=== PATIENT | female | born 1980 | race Caucasian/White ===

== ENCOUNTER → 2017-02-25 | Outpatient (CLI) | payer MEDICAID | END | disposition home or self-care (01) | LOC: WOUND 09:30 | PROVIDERS: ATTEND Internal Medicine | DX: T87.89 Other complications of amputation stump (principal); L89.892 Pressure ulcer of other site, stage 2; F32.9 Major depressive disorder, single episode, unspecified; G43.909 Migraine, unspecified, not intractable, without status migrainosus; K21.9 Gastro-esophageal reflux disease without esophagitis; E66.01 Morbid (severe) obesity due to excess calories; F41.9 Anxiety disorder, unspecified; Z72.89 Other problems related to lifestyle; Y83.5 Amputation of limb(s) as the cause of abnormal reaction of the patient, or of later complication, without mention of misadventure at the time of the procedure | CPT/HCPCS: 99213 ==

== ENCOUNTER 2018-10-25 18:51 | Emergency (ER) | payer MEDICARE, MEDICAID ==
[~2018-10-25] VITALS: Ht 160 cm; Wt 112.4 kg
[2018-10-25 18:57] VITALS: BP 121/85
[2018-10-25 19:54] LABS: BASOPHILS # (AUTO) 0.03 x10^3/uL (0-0.1); BASOPHILS % (AUTO) 0 % (0-1); EOSINOPHILS % (AUTO) 1 % (1-7); LYMPHOCYTES # (AUTO) 2.49 x10^3/uL (1-3.4); LYMPHOCYTES % (AUTO) 25 % (22-44); MD NO; MEAN CORPUSCULAR HEMOGLOBIN 30.8 pg (27.0-34.8); MEAN CORPUSCULAR HGB CONC 34.5 g/dL (32.4-35.8); MEAN CORPUSCULAR VOLUME 89.2 fL (80-100); MEAN PLATELET VOLUME 7.7 fL (7.4-10.4); MONOCYTES # (AUTO) 0.69 x10^3/uL (0.2-0.8); MONOCYTES % (AUTO) 7 % (2-9); NEUTROPHILS # (AUTO) 6.53 x10^3/uL (1.8-6.8); NEUTROPHILS % (AUTO) 66 % (42-75); PLATELET COUNT 277 x10^3/uL (130-400); RED BLOOD COUNT 4.83 x10^6/uL (3.82-5.3); RED CELL DISTRIBUTION WIDTH 12.5 % (9.6-15.2)
[2018-10-25] MEDS ORDERED: ONDANSETRON ODT 4 MG PO ONE (20:00)
[2018-10-25 20:03] LABS: ALANINE AMINOTRANSFERASE 59 U/L (12-78); ALBUMIN 3.5 g/dL (3.4-5.0); ANION GAP 9 mmol/L (5-15); CALCIUM 9.4 mg/dL (8.5-10.1); CHLORIDE 104 mmol/L (98-107); CREATININE 0.88 mg/dL (0.55-1.02)
[2018-10-25 20:08] LABS: ALKALINE PHOSPHATASE 125 U/L (45-117); BILIRUBIN,TOTAL 0.6 mg/dL (0.2-1.0); TOTAL PROTEIN 7.8 g/dL (6.4-8.2)
[2018-10-25] MEDS ORDERED: ONDANSETRON ODT 4 MG ONE (20:15)
== END 2018-10-25 20:49 | disposition home or self-care (01) ==
LOC: ED 20:10
DX: R11.2 Nausea with vomiting, unspecified (principal); R19.7 Diarrhea, unspecified; K64.4 Residual hemorrhoidal skin tags; I10 Essential (primary) hypertension
CPT/HCPCS: 36415; 80053; 84703; 85025; 99283; Q0162

== ENCOUNTER 2018-12-02 19:18 | Emergency (ER) | payer MEDICARE, MEDICAID ==
[~2018-12-02] VITALS: Ht 160 cm; Wt 115.2 kg
--- NOTE | 2018-12-02 19:56 | NUR ---
PT PRESENTED WITH C/O SIGNIFICANT PAIN TO THE RIGHT SIDE OF THE BACK/BUTTOCK AREA. PT HAD NEUROSTIMULATOR PLACED LAST MONTH, NOW HERE WITH WORSENING PAIN. MONITORS APPLIED, SIDERAILS UP X2, FAMILY AT BEDSIDE, CALL LIGHT WITHIN REACH. EXECUTIVE MARKETING ASSISTANT AT BEDSIDE FOR LAB DRAW.
[2018-12-02] MEDS ORDERED: BUPR1PAT20 TD (20:06)
[2018-12-02] MEDS ORDERED: ATOR10TA9 PO (20:06)
[2018-12-02] MEDS ORDERED: PREG100C PO (20:06)
[2018-12-02] MEDS ORDERED: VENL75TA PO (20:06)
[2018-12-02] MEDS ORDERED: MONT10TA6 PO (20:06)
[2018-12-02] MEDS ORDERED: L.AC1CAP6 PO (20:06)
[2018-12-02] MEDS ORDERED: PANT40TA5 PO (20:06)
[2018-12-02] MEDS ORDERED: BUSP10TA PO (20:06)
[2018-12-02] MEDS ORDERED: MULT-508 PO (20:06)
[2018-12-02] MEDS ORDERED: ASPI-515 PO (20:06)
[2018-12-02 20:13] LABS: BASOPHILS # (AUTO) 0.03 x10^3/uL (0-0.1); BASOPHILS % (AUTO) 0 % (0-1); EOSINOPHILS # (AUTO) 0.06 x10^3/uL (0-0.4); EOSINOPHILS % (AUTO) 1 % (1-7); LYMPHOCYTES # (AUTO) 2.78 x10^3/uL (1-3.4); LYMPHOCYTES % (AUTO) 30 % (22-44); MD NO; MEAN CORPUSCULAR HEMOGLOBIN 30.1 pg (27.0-34.8); MEAN CORPUSCULAR VOLUME 88.4 fL (80-100); MEAN PLATELET VOLUME 7.8 fL (7.4-10.4); MONOCYTES % (AUTO) 6 % (2-9); NEUTROPHILS # (AUTO) 5.82 x10^3/uL (1.8-6.8); NEUTROPHILS % (AUTO) 63 % (42-75); PLATELET COUNT 283 x10^3/uL (130-400); RED BLOOD COUNT 4.38 x10^6/uL (3.82-5.3); RED CELL DISTRIBUTION WIDTH 12.3 % (9.6-15.2)
--- NOTE | 2018-12-02 20:18 | NUR ---
SENIOR CLINICAL PROJECT MANAGER AT PT'S BEDSIDE RAMON SHAH
[2018-12-02 20:21] LABS: ALANINE AMINOTRANSFERASE 43 U/L (12-78); ALBUMIN 3.2 g/dL (3.4-5.0); ANION GAP 5 mmol/L (5-15); CALCIUM 8.5 mg/dL (8.5-10.1); CHLORIDE 109 mmol/L (98-107); CREATININE 0.91 mg/dL (0.55-1.02)
[2018-12-02 20:23] LABS: ALKALINE PHOSPHATASE 122 U/L (45-117); BILIRUBIN,TOTAL 0.2 mg/dL (0.2-1.0)
[2018-12-02] MEDS ORDERED: OXYcodone/APAP 5/325MG TABLET PO ONE (20:30)
[2018-12-02] MEDS ORDERED: OXYcodone/APAP 5/325MG TABLET ONE (20:39)
--- NOTE | 2018-12-02 20:44 | NUR ---
PT MEDICATED FOR PAIN, SIDERAILS UP X2, CALL LIGHT WITHIN REACH.
[2018-12-02 21:16] VITALS: BP 144/95
--- NOTE | 2018-12-02 21:17 | NUR ---
PT RESTING ON GURNEY, STATED "PAIN HAS GOTTEN BETTER", DENIES NEEDS AT THIS TIME, CALL LIGHT WITHIN REACH
== END 2018-12-02 22:22 | disposition home or self-care (01) ==
LOC: ED 21:09
DX: L76.82 Other postprocedural complications of skin and subcutaneous tissue (principal); I10 Essential (primary) hypertension
CPT/HCPCS: 36415; 80053; 85025; 99283

== ENCOUNTER 2018-12-04 21:33 | Emergency (ER) | payer MEDICARE, MEDICAID ==
[~2018-12-04] VITALS: Ht 160 cm; Wt 105.0 kg
[~2018-12-04 21:33] MED LIST: ASPI-515 PO; ATOR10TA9 PO; BUPR1PAT20 TD; BUSP10TA PO; L.AC1CAP6 PO; MONT10TA6 PO; MULT-508 PO; PANT40TA5 PO; PREG100C PO; VENL75TA PO
--- NOTE | 2018-12-04 21:35 | NUR ---
PT BIBA FROM HOME WITH C/O BACK PAIN, COUGH, AND FEVER. PT HAD NEUROSTIMILATOR PLACED AND STATES WAS SEEN FOR WORSE BACK PAIN YESTERDAY, WAS TOLD TO COME IN IF DEVELOPED FEVER. PT STATES TEMP AT HOME WAS 101 TONIGHT, LAST NORCO WAS 9AM TODAY. PT STATES PAIN STARTED Oct WHEN THEY TOOK THE MAYDA OUT. PT STATES COUGH STARTED YESTERDAY WITH HOARSE VOICE TODAY. PT DENIES TAKING MEDS FOR TEMP OR PAIN TONIGHT. PT AFEBRILE UPON ARRIVAL.
--- NOTE | 2018-12-04 21:38 | NUR ---
MD TO BEDSIDE FOR PT EVAL.
[2018-12-04] MEDS ORDERED: PLEASE ENTER HEIGHT AND WEIGHT MC SCH (22:00)
[2018-12-04] MEDS ORDERED: ACETAMINOPHEN 500 MG TABLET PO ONE (22:00)
--- NOTE | 2018-12-04 22:17 | NUR ---
PT UP TO RESTROOM WITH STEADY GAIT FOR URINE COLLECTION. PT TO HAVE TYLENOL.
[2018-12-04 22:18] LABS: RAPID INFLUENZA A POSITIVE (Negative); RAPID INFLUENZA B Negative (Negative)
[2018-12-04] MEDS ORDERED: ACETAMINOPHEN 500 MG TABLET ONE (22:19)
[2018-12-04 22:29] LABS: ALANINE AMINOTRANSFERASE 42 U/L (12-78); ALBUMIN 3.2 g/dL (3.4-5.0); ANION GAP 9 mmol/L (5-15); CALCIUM 8.3 mg/dL (8.5-10.1); CHLORIDE 107 mmol/L (98-107); CREATININE 0.87 mg/dL (0.55-1.02)
--- NOTE | 2018-12-04 22:29 | NUR ---
pT RETURN FROM RESTROOM WITH STEADY GAIT, URINE TO LAB. PT RECIEVED TYLENOL PER ORDERS, SEE EMAR. PT RESTING IN BED, VSS. WILL MONITOR.
[2018-12-04 22:31] LABS: ALKALINE PHOSPHATASE 116 U/L (45-117); BILIRUBIN,TOTAL 0.3 mg/dL (0.2-1.0)
[2018-12-04 22:32] LABS: BASOPHILS # (AUTO) 0.02 x10^3/uL (0-0.1); BASOPHILS % (AUTO) 0 % (0-1); EOSINOPHILS % (AUTO) 0 % (1-7); LYMPHOCYTES # (AUTO) 0.71 x10^3/uL (1-3.4); LYMPHOCYTES % (AUTO) 12 % (22-44); MD NO; MEAN CORPUSCULAR HGB CONC 35.5 g/dL (32.4-35.8); MEAN CORPUSCULAR VOLUME 87.4 fL (80-100); MEAN PLATELET VOLUME 8.1 fL (7.4-10.4); MONOCYTES # (AUTO) 0.48 x10^3/uL (0.2-0.8); MONOCYTES % (AUTO) 8 % (2-9); NEUTROPHILS # (AUTO) 4.82 x10^3/uL (1.8-6.8); NEUTROPHILS % (AUTO) 80 % (42-75); PLATELET COUNT 217 x10^3/uL (130-400); RED CELL DISTRIBUTION WIDTH 12.3 % (9.6-15.2)
--- NOTE | 2018-12-04 22:51 | NUR ---
MD TO BEDSIDE FOR PT UPDATE. PT HAS FLU.
--- NOTE | 2018-12-04 23:20 | NUR ---
UA SENT BUT NOT PROCESSED, LAB NOTIFIED. AWAITING RESULTS.
[2018-12-04 23:35] LABS: MICROSCOPIC NOT IND
[2018-12-04 23:36] LABS: CULTURE INDICATED? NO
--- NOTE | 2018-12-04 23:38 | NUR ---
PT CONTINUES TO REST IN BED, URINE RESULTED. PT TO D/C.
[2018-12-04 23:40] VITALS: BP 116/67
--- NOTE | 2018-12-04 23:44 | NUR ---
PT REPORTS SHE HASN'T BEEN DRINKING MUCH FLUIDS LATELY R/T RESTING A LOT FROM HER PAIN AND SURGERY. PT DRANK 1 CUP OF WATER. PT ENCOURAGED TO DRINK LOTS OF FLUIDS IN GENERAL BUT ESPECIALLY WHILE HAVING THE FLU. PT VERBALIZED UNDERSTANDING. PT GETTING DRESSED. AWAITING D/C PAPERWORK.
== END 2018-12-04 23:53 | disposition home or self-care (01) ==
LOC: ED 22:25
DX: J09.X2 Influenza due to identified novel influenza A virus with other respiratory manifestations (principal); I10 Essential (primary) hypertension; Z88.1 Allergy status to other antibiotic agents; Z88.8 Allergy status to other drugs, medicaments and biological substances; Z91.040 Latex allergy status
CPT/HCPCS: 36415; 71045; 80053; 81003; 83605; 84145; 85025; 87040; 87400; 93005; 99284

== ENCOUNTER 2019-11-28 18:10 | Emergency (ER) | payer OTHER ==
[~2019-11-28] VITALS: Ht 160 cm; Wt 117.2 kg
--- NOTE | 2019-11-28 18:47 | NUR ---
Pt to 19 from lobby
[2019-11-28] MEDS ORDERED: SODIUM CHLORIDE 0.9% 1,000 ML IV ONE (19:17)
[2019-11-28] MEDS ORDERED: ONDANSETRON 2MG/ML, 2ML IVPush ONE (19:30)
[2019-11-28] MEDS ORDERED: HYDROmorphone 2 MG/ML, 1ML IVPush PRN (19:30)
[2019-11-28] MEDS ORDERED: SODIUM CHLORIDE FLUSH 10ML SYR IVF ONE (19:30)
[2019-11-28] MEDS ORDERED: HYDROmorphone 1 MG/ML, 1ML INJ ONE (19:33)
[2019-11-28] MEDS ORDERED: ONDANSETRON 2MG/ML, 2ML ONE (19:33)
[2019-11-28 19:35] LABS: BASOPHILS # (AUTO) 0.05 x10^3/uL (0-0.1); BASOPHILS % (AUTO) 1 % (0-1); EOSINOPHILS # (AUTO) 0.05 x10^3/uL (0-0.4); EOSINOPHILS % (AUTO) 1 % (1-7); LYMPHOCYTES # (AUTO) 2.95 x10^3/uL (1-3.4); LYMPHOCYTES % (AUTO) 33 % (22-44); MD NO; MEAN CORPUSCULAR HEMOGLOBIN 30.5 pg (27.0-34.8); MEAN CORPUSCULAR HGB CONC 33.6 g/dL (32.4-35.8); MEAN CORPUSCULAR VOLUME 90.8 fL (80-100); MEAN PLATELET VOLUME 7.4 fL (7.4-10.4); MONOCYTES # (AUTO) 0.54 x10^3/uL (0.2-0.8); MONOCYTES % (AUTO) 6 % (2-9); NEUTROPHILS # (AUTO) 5.28 x10^3/uL (1.8-6.8); NEUTROPHILS % (AUTO) 60 % (42-75); PLATELET COUNT 298 x10^3/uL (130-400); RED BLOOD COUNT 4.26 x10^6/uL (3.82-5.3); RED CELL DISTRIBUTION WIDTH 12.4 % (9.6-15.2)
[2019-11-28 19:44] LABS: ALANINE AMINOTRANSFERASE 43 U/L (12-78); ALBUMIN 3.2 g/dL (3.4-5.0); ANION GAP 4 mmol/L (5-15); CALCIUM 8.5 mg/dL (8.5-10.1); CHLORIDE 108 mmol/L (98-107); CREATININE 1.16 mg/dL (0.55-1.02)
[2019-11-28 19:49] LABS: ALKALINE PHOSPHATASE 90 U/L (45-117); BILIRUBIN,TOTAL 0.2 mg/dL (0.2-1.0); TOTAL PROTEIN 6.8 g/dL (6.4-8.2)
--- NOTE | 2019-11-28 20:16 | NUR ---
Patient into room, RN to bedside. Blood pressure cuff and pulsatile oxygen sensor in place, vital signs stable (see vital signs flowsheet) RN returned to bedside after orders placed by provider. Started peripheral intrevenous catheter per protocol. Patient then medicated for pain and nausea. RN discussed startin of iv fluids and obtaining a urine sample. Patient prefers to provide sample after computed tomography scan. RN agreeable to plan. Awaiting CT scan.
--- NOTE | 2019-11-28 20:19 | NUR ---
cadd technician to bedside. Patient out of room. Awaiting return on completion of scan.
[2019-11-28 20:53] LABS: MICROSCOPIC NOT IND
[2019-11-28 20:56] LABS: CULTURE INDICATED? NO
[2019-11-28 21:20] VITALS: BP 118/78
[2019-11-28] MEDS ORDERED: OMNIPAQUE 350 MG/ML, 100ML BOTTLE ONE (22:59)
== END 2019-11-28 21:29 | disposition home or self-care (01) ==
LOC: ED 19:46
DX: R10.31 Right lower quadrant pain (principal); R10.11 Right upper quadrant pain; I10 Essential (primary) hypertension
CPT/HCPCS: 36415; 74177; 80053; 81003; 83690; 84703; 85025; 96374; 96375; 99284; J1170; J2405; Q9967

== ENCOUNTER 2020-02-06 19:07 | Emergency (ER) | payer OTHER ==
[~2020-02-06] VITALS: Ht 177.8 cm; Wt 120.5 kg
[2020-02-06 19:12] VITALS: BP 135/84
[2020-02-06] MEDS ORDERED: NAPROXEN 500 MG TABLET ONE (20:26)
[2020-02-06] MEDS ORDERED: NAPROXEN 500 MG TABLET PO ONE (20:30)
== END 2020-02-06 20:53 | disposition home or self-care (01) ==
LOC: ED 20:00
DX: S60.221A Contusion of right hand, initial encounter (principal); I10 Essential (primary) hypertension; W18.30XA Fall on same level, unspecified, initial encounter; Y93.89 Activity, other specified; Y92.89 Other specified places as the place of occurrence of the external cause; Y99.8 Other external cause status
CPT/HCPCS: 99283

== ENCOUNTER 2020-02-09 11:50 | Emergency (ER) | payer OTHER ==
[~2020-02-09] VITALS: Ht 160 cm; Wt 120.7 kg
[2020-02-09 12:07] VITALS: BP 146/86
== END 2020-02-09 12:30 | disposition home or self-care (01) ==
LOC: ED 12:23
DX: H66.002 Acute suppurative otitis media without spontaneous rupture of ear drum, left ear (principal); R05 Cough; R09.81 Nasal congestion; I10 Essential (primary) hypertension
CPT/HCPCS: 99281

== ENCOUNTER 2021-08-04 11:55 | Emergency (ER) | payer OTHER, MEDICAID ==
[~2021-08-04] VITALS: Ht 160 cm; Wt 112.4 kg
[~2021-08-04 11:55] MED LIST changes: -ASPI-515 PO; +ASPI-963 PO; -PANT40TA5 PO; +PANT40TA6 PO
--- NOTE | 2021-08-04 12:12 | NUR ---
branch credit counselor: Pt ambulatory to room from lobby at this time.
--- NOTE | 2021-08-04 12:14 | NUR ---
PT TO ROOM FROM [facility], CHANGED INTO GOWN, MONITORS IN PLACE. PT C/O GENERALIZED BACK PAIN SINCE LAST NIGHT, SHE WAS MOVING BOXES AND HEARD A "POP" CALL LIGHT WITHIN REACH, BED IN LOWEST POSITION
--- NOTE | 2021-08-04 12:17 | NUR ---
PA AT BS FOR EVAL
[2021-08-04] MEDS ORDERED: KETOROLAC 30 MG/1 ML ONE (12:26)
[2021-08-04] MEDS ORDERED: DIAZEPAM 5 MG TABLET ONE (12:26)
[2021-08-04] MEDS ORDERED: KETOROLAC 30 MG/1 ML IM ONE (12:30)
[2021-08-04] MEDS ORDERED: DIAZEPAM 5 MG TABLET PO ONE (12:30)
--- NOTE | 2021-08-04 12:32 | NUR ---
PT MEDICATED PER EMAR, NADN/VSS. CALL LIGHT WITHIN REACH. FAMILY AT BS
--- NOTE | 2021-08-04 12:36 | NUR ---
PT TO XR
--- NOTE | 2021-08-04 12:45 | NUR ---
PT BACK FROM XR, CONNECTED TO MONITORS, CALL LIGHT WITHIN REACH
--- NOTE | 2021-08-04 13:18 | NUR ---
PT AT FOR RECHECK
[2021-08-04 13:42] VITALS: BP 99/58
== END 2021-08-04 13:44 | disposition home or self-care (01) ==
LOC: ED 13:04
DX: S39.012A Strain of muscle, fascia and tendon of lower back, initial encounter (principal); F17.210 Nicotine dependence, cigarettes, uncomplicated; X58.XXXA Exposure to other specified factors, initial encounter; Y93.89 Activity, other specified; Y92.89 Other specified places as the place of occurrence of the external cause; Y99.8 Other external cause status
CPT/HCPCS: 72110; 96372; 99283; J1885